=== PATIENT | male | born 2000 | race Caucasian/White ===

== ENCOUNTER → 2023-10-01 17:43 | Outpatient (REF) | payer OTHER, SELFPAY | LOC: RAD 17:43 | PROVIDERS: ATTENDING PHYSICIAN Physician Assistant Medical | DX: R07.9 Chest pain, unspecified (principal); K21.9 Gastro-esophageal reflux disease without esophagitis; J69.0 Pneumonitis due to inhalation of food and vomit | CPT/HCPCS: 71046 ==